=== PATIENT | male | born 1950 | race Two or more races ===

== ENCOUNTER 2019-05-08 16:10 | Emergency (ER) | payer MEDICARE, MEDICAID ==
[~2019-05-08] VITALS: Ht 167.6 cm; Wt 77.1 kg
[2019-05-08 17:34] VITALS: BP 133/80
== END 2019-05-08 20:14 | disposition home or self-care (01) ==
LOC: ER 16:24
DX: R42 Dizziness and giddiness (principal); R51 Headache; E78.5 Hyperlipidemia, unspecified; Z88.0 Allergy status to penicillin
CPT/HCPCS: 70450; 93005